=== PATIENT | male | born 1995 | race Caucasian/White ===

== ENCOUNTER 2025-01-19 22:47 | Emergency (ER) | payer OTHER ==
[~2025-01-19] VITALS: Ht 188 cm; Wt 101.6 kg
[2025-01-19 22:56] VITALS: BP 176/95; RESP 16; TEMP 36.8; O2SAT 100
[2025-01-19 22:58] VITALS: PULSE 115; O2SAT 98
[2025-01-19 23:53] LABS: BASOPHILS % 0.5 % (0.0-2.0); EOSINOPHILS % 0.3 % (0.0-5.0); HEMATOCRIT. 41.3 % (42.0-52.0); HEMOGLOBIN. 13.9 g/dL (14.0-18.0); LYMPHOCYTES % 21.2 % (20.0-50.0); MEAN CORPUSCULAR HEMOGLOBIN 28.9 pg (28.0-32.0); MEAN CORPUSCULAR HGB CONC 33.7 g/dL (31.0-37.0); MEAN CORPUSCULAR VOLUME 85.8 fL (80.0-94.0); MEAN PLATELET VOLUME 7.9 fl (7.4-10.4); MONOCYTES % 5.9 % (2.0-8.0); NEUTROPHILS % 72.1 % (40.0-76.0); PLATELET 273 x1000/uL (130-400); RED BLOOD CELL COUNT 4.82 mill/uL (4.7-6.1); RED CELL DISTRIBUTION WIDTH 13.6 % (11.6-14.6); WHITE BLOOD COUNT 11.2 x1000/uL (4.5-11.0)
[2025-01-20 00:08] LABS: CHLORIDE 103 mEq/L (98-107); POTASSIUM 3.6 mEq/L (3.5-5.1); SODIUM 138 mEq/L (136-145)
[2025-01-20 00:09] LABS: CARBON DIOXIDE 26 mEq/L (21-32)
[2025-01-20 00:10] LABS: CALCIUM 9.2 mg/dL (8.7-10.4)
[2025-01-20 00:15] LABS: ETHANOL BLOOD < 10 mg/dL (<10); GLUCOSE 142 mg/dL (70-105); UREA NITROGEN BLOOD 10 mg/dL (9-23)
[2025-01-20 00:16] LABS: TROPONIN I HIGH SENSITIVITY 10 ng/L (3.0-53)
== END 2025-01-20 01:13 | disposition left against medical advice (07) ==
LOC: ER 22:47
DX: R00.0 Tachycardia, unspecified (principal); Z53.21 Procedure and treatment not carried out due to patient leaving prior to being seen by health care provider
CPT/HCPCS: 36415; 71045; 80048; 80320; 84484; 85025; 93005; G0480